=== PATIENT | male | born 2000 | race Caucasian/White ===

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

== ENCOUNTER → 2020-02-07 | Outpatient (CLI) | payer OTHER ==
--- NOTE | 2020-02-07 10:35 | US ---
EXAMINATION TYPE: US abdomen complete DATE OF EXAM: 02/07/2020 COMPARISON: NONE CLINICAL HISTORY: 19-year-old male E80.7 Disorder of bilirubin metabolism. TECHNIQUE: Multiple sonographic images of the abdomen are obtained. FINDINGS: EXAM MEASUREMENTS: Liver Length: 14.5 cm Gallbladder Wall: 0.2 cm CBD: 0.4 cm Spleen: 8.7 cm Right Kidney: 10.0 x 5.0 x 3.6 cm Left Kidney: 10.5 x 4.8 x 3.5 cm Pancreas: No gross abnormality. Liver: Homogeneous appearance. No focal lesion. However, the periportal fat is slightly echogenic. Gallbladder: No stones seen Evidence for sonographic Eckert's sign: No CBD: wnl Spleen: wnl Kidneys: No hydronephrosis. Upper IVC: wnl Abd Aorta: wnl IMPRESSION: 1. Slightly echogenic appearance to the periportal fat may be technical. Correlate with LFTs to exclu de hepatitis. 2. No gallstones or biliary ductal dilatation.
== END | disposition home or self-care (01) ==
LOC: RADUSWWP 07:04
PROVIDERS: ATTEND Family Medicine
DX: E80.7 Disorder of bilirubin metabolism, unspecified (principal)
CPT/HCPCS: 76700

== ENCOUNTER 2020-06-19 05:12 | Emergency (ER) | payer OTHER ==
[2020-06-19 05:20] VITALS: BP 119/77; TEMP 97.8
[2020-06-19] MEDS ORDERED: MAG HYDROX/AL HYDROX/SIMETH 30 ML, HYOSCYAMINE ELIXIR 10 ML, LIDOCAINE VISCOUS 2% 10 ML PO STA ×3 (05:37)
--- NOTE | 2020-06-19 05:44 | ED ---
Chest Pain HPI - General Chief Complaint: Chest Pain Stated Complaint: Chest pain Time Seen by Provider: 06/19/20 05:24 Source: patient, family Mode of arrival: ambulatory Limitations: no limitations - History of Present Illness MD Complaint: chest pain Onset/Timin -: days(s) Onset: during rest Pain Location: left chest Pain Radiation: none Severity: mild Quality: aching Consistency: constant Improves With: nothing Worsens With: nothing Treatments Prior to Arrival: none - Related Data Home Medications Medication Instructions Recorded Confirmed No Known Home Medications 09/11/16 09/11/16 Allergies Allergy/AdvReac Type Severity Reaction Status Date / Time pseudoephedrine Allergy Unknown Verified 06/19/20 05:20 Review of Systems ROS Statement: Those systems with pertinent positive or pertinent negative responses have been documented in the HPI. ROS Other: All systems not noted in ROS Statement are negative. Constitutional: Denies: fever, chills Respiratory: Denies: cough, dyspnea, wheezes Cardiovascular: Reports: chest pain. Denies: palpitations, dyspnea on exertion, orthopnea, edema, syncope Gastrointestinal: Denies: abdominal pain, nausea, vomiting, diarrhea, constipation Genitourinary: Denies: dysuria, hematuria Musculoskeletal: Denies: back pain Skin: Denies: rash Neurological: Denies: headache, weakness, numbness EKG Findings - EKG Results: EKG: interpreted by JOSH, sinus rhythm, normal axis, normal QRS, normal ST/T, no acute changes EKG shows: bradycardia (Rate 57 bpm) Past Medical History Past Medical History: No Reported History History of Any Multi-Drug Resistant Organisms: None Reported Past Surgical History: No Surgical Hx Reported Past Psychological History: No Psychological Hx Reported Smoking Status: Current some day smoker, Vaper Past Alcohol Use History: None Reported Past Drug Use History: None Reported General Exam Limitations: no limitations General appearance: alert, in no apparent distress Head exam: Present: atraumatic, normocephalic Eye exam: Present: normal appearance. Absent: scleral icterus, conjunctival injection ENT exam: Present: normal oropharynx Neck exam: Present: normal inspection Respiratory exam: Present: normal lung sounds bilaterally, chest wall tenderness. Absent: respiratory distress, wheezes, rales, rhonchi, stridor Cardiovascular Exam: Present: regular rate, normal rhythm, normal heart sounds. Absent: systolic murmur, diastolic murmur, rubs, gallop GI/Abdominal exam: Present: soft. Absent: distended, tenderness, guarding, rebound, rigid, mass Extremities exam: Present: normal inspection, normal capillary refill. Absent: pedal edema, calf tenderness Back exam: Present: normal inspection. Absent: CVA tenderness (R), CVA tenderness (L) Neurological exam: Present: alert Skin exam: Present: warm, dry, intact, normal color. Absent: rash Course Vital Signs 06/19/20 06/19/20 05:14 06:30 Temperature 97.8 F Pulse Rate 59 L 77 Respiratory 26 H 14 Rate Blood Pressure 119/77 O2 Sat by Pulse 99 97 Oximetry Chest Pain MDM - MDM Patient is 20-year-old man with atypical chest pain. Workup here unremarkable. Patient to try a course of nonsteroidal and follow-up. Discussed appropriate follow-up and also return parameters. Disposition Clinical Impression: Atypical chest pain Disposition: HOME SELF-CARE Condition: Good Instructions (If sedation given, give patient instructions): Chest Pain (ED) Is patient prescribed a controlled substance at d/c from ED?: No Referrals: Leslie Barajas MD [Primary Care Provider] - 1-2 days
--- NOTE | 2020-06-19 05:56 | XR ---
EXAM: XR Chest, 2 Views CLINICAL HISTORY: ITS.REASON XR Reason: chest pain TECHNIQUE: Frontal and lateral views of the chest. COMPARISON: No relevant prior studies available. FINDINGS: Lungs: Unremarkable. No consolidation. Pleural space: Unremarkable. No pneumothorax. Heart: Unremarkable. No cardiomegaly. Mediastinum: Unremarkable. Bones/joints: Unremarkable. IMPRESSION: Normal chest x-rays.
[2020-06-19 06:32] VITALS: PULSE 77; RESP 14
== END 2020-06-19 06:30 | disposition home or self-care (01) ==
LOC: EC 05:12
DX: R07.89 Other chest pain (principal); F17.290 Nicotine dependence, other tobacco product, uncomplicated; Z88.8 Allergy status to other drugs, medicaments and biological substances
CPT/HCPCS: 71046; 93005; 99285

== ENCOUNTER 2020-12-12 11:51 | Emergency (ER) | payer OTHER ==
[2020-12-12 11:55] VITALS: BP 110/60; PULSE 72; RESP 16; TEMP 98.1
[2020-12-12] MEDS ORDERED: KETOROLAC 15 MG/ML 1 ML VIAL IM STA (12:30)
[2020-12-12] MEDS ORDERED: ACETAMINOPHEN TAB 500 MG TAB PO STA (12:30)
[2020-12-12 12:54] LABS: Appearance,Urine Clear (Clear); Bilirubin,Urine Negative (Negative); Blood,Urine Negative (Negative); Color,Urine Colorless; Glucose,Urine (UA) Negative (Negative); Ketones,Urine Negative (Negative); Leukocyte Esterase,Urine Negative (Negative); Nitrite,Urine Negative (Negative); PH, Urine 7.5 (5.0-8.0); Protein,Urine Negative (Negative); Specific Gravity,Urine 1.005 (1.001-1.035); Urobilinogen,Urine <2.0 mg/dL (<2.0)
--- NOTE | 2020-12-12 12:56 | ED ---
Back Pain HPI - General Chief Complaint: Back Pain/Injury Stated Complaint: Back injury Time Seen by Provider: 12/12/20 12:15 Source: patient Limitations: no limitations - History of Present Illness Initial Comments: 20-year-old male patient presents to the emergency department today for evaluation of right flank pain. Patient states that the pain started about a week ago when lifting 95 pound weights at the gym. States that after some rest the pain did resolve. States he was again lifting today and the pain returned. Patient states is a sharp stabbing pain to the right flank region. States it hurts worse with movement and deep breathing. Denies any hematuria, dysuria, urinary frequency, urinary urgency. Denies nausea or vomiting. Denies any fever or chills. Denies any pain radiation down the legs. Denies saddle anesthesia or loss of bowel or bladder control. Denies any numbness or tingling to the lower extremities. Denies history of back problems. - Related Data Previous Rx's Medication Instructions Recorded Cyclobenzaprine [Flexeril] 10 mg PO TID #15 tab 12/12/20 Ibuprofen [Motrin] 600 mg PO Q8HR PRN #30 tab 12/12/20 Allergies Allergy/AdvReac Type Severity Reaction Status Date / Time pseudoephedrine Allergy Unknown Verified 12/12/20 11:54 Review of Systems ROS Statement: Those systems with pertinent positive or pertinent negative responses have been documented in the HPI. ROS Other: All systems not noted in ROS Statement are negative. Past Medical History Past Medical History: No Reported History History of Any Multi-Drug Resistant Organisms: None Reported Past Surgical History: No Surgical Hx Reported Past Psychological History: No Psychological Hx Reported Smoking Status: Current some day smoker, Vaper Past Alcohol Use History: None Reported Past Drug Use History: None Reported General Exam Limitations: no limitations General appearance: alert, in no apparent distress, other (this is a well- developed, well-nourished adult male patient in no acute distress. Vital signs upon presentation are temperature and he 8.1F, pulse 72, respirations 16, blood pressure 110/60, pulse ox 100% on room air.) ENT exam: Present: normal exam, normal oropharynx, mucous membranes moist Respiratory exam: Present: normal lung sounds bilaterally. Absent: respiratory distress, wheezes, rales, rhonchi, stridor Cardiovascular Exam: Present: regular rate, normal rhythm, normal heart sounds. Absent: systolic murmur, diastolic murmur, rubs, gallop, clicks GI/Abdominal exam: Present: soft, normal bowel sounds. Absent: distended, tenderness, guarding, rebound, rigid Back exam: Present: normal inspection, CVA tenderness (R). Absent: CVA tenderness (L), vertebral tenderness Neurological exam: Present: alert, oriented X3, CN II-XII intact Psychiatric exam: Present: normal affect, normal mood Skin exam: Present: warm, dry, intact, normal color. Absent: rash Course Vital Signs 12/12/20 11:52 Temperature 98.1 F Pulse Rate 72 Respiratory 16 Rate Blood Pressure 110/60 O2 Sat by Pulse 100 Oximetry Medical Decision Making - Medical Decision Making 20-year-old male patient presents the emergency department today for evaluation of right flank pain that started after lifting heavy weights at the gym. Physical examination did reveal right CVA tenderness. He is afebrile normal vital signs. Abdomen is soft and nontender. Urinalysis was obtained and was negative for any signs of blood or infection. We will treat for muscle strain at this time. We discussed possibility of kidney stone though and he is educated regarding signs and symptoms. Return parameters were discussed in detail. He is instructed to follow-up with his primary care physician for recheck in 1-2 days. He verbalizes understanding and agrees with this plan. Case discussed with my attending Dr. Mauricio. - Lab Data Lab Results 12/12/20 Range/Units 12:37 Urine Color Colorless Urine Appearance Clear (Clear) Urine pH 7.5 (5.0-8.0) Ur Specific [place] 1.005 (1.001-1.035) Urine Protein Negative (Negative) Urine Glucose (UA) Negative (Negative) Urine Ketones Negative (Negative) Urine Blood Negative (Negative) Urine Nitrite Negative (Negative) Urine Bilirubin Negative (Negative) Urine Urobilinogen <2.0 (<2.0) mg/dL Ur Leukocyte Esterase Negative (Negative) Disposition Clinical Impression: Flank pain Disposition: HOME SELF-CARE Condition: Good Instructions (If sedation given, give patient instructions): Flank Pain (ED), Back Pain (ED) Additional Instructions: Increase fluids. Take medications as directed. Take a rest from lifting heavy weight for at least one week. Apply warm moist heat to the area. Return to the emergency department for evaluation if you develop fever, vomiting, or blood in the urine. Return for any other new, worsening, or concerning symptoms. Prescriptions: Cyclobenzaprine [Flexeril] 10 mg PO TID #15 tab Ibuprofen [Motrin] 600 mg PO Q8HR PRN #30 tab PRN Reason: Pain Is patient prescribed a controlled substance at d/c from ED?: No Referrals: Leslie Barajas MD [Primary Care Provider] - 1-2 days Time of Disposition: 13:07
== END 2020-12-12 13:31 | disposition home or self-care (01) ==
LOC: EC 11:51
DX: R10.9 Unspecified abdominal pain (principal); F17.290 Nicotine dependence, other tobacco product, uncomplicated
CPT/HCPCS: 81003; 99284; 96372; J1885

== ENCOUNTER 2021-09-20 06:38 | Emergency (ER) | payer OTHER ==
[2021-09-20 06:48] VITALS: BP 131/88; PULSE 79; RESP 19; TEMP 98
--- NOTE | 2021-09-20 06:55 | ED ---
General Adult HPI - General Chief complaint: Skin/Abscess/Foreign Body Stated complaint: Left Pinky Finger Injury Time Seen by Provider: 09/20/21 06:48 Source: patient, RN notes reviewed Mode of arrival: ambulatory Limitations: no limitations - History of Present Illness Initial comments: This a 29-year-old male presents emergency Department with chief complaint of left hand fifth digit injury. Patient states he was trying to loosen something with a ratchet states it slipped causing him to smash his fifth digit of the left hand. He is [id number]. No paresthesias. Patient states is bruising, swelling today. Patient states is very uncomfortable. - Related Data Previous Rx's Medication Instructions Recorded Cyclobenzaprine [Flexeril] 10 mg PO TID #15 tab 12/12/20 Ibuprofen [Motrin] 600 mg PO Q8HR PRN #30 tab 12/12/20 Ibuprofen [Motrin] 600 mg PO Q8HR PRN #20 tab 09/20/21 Allergies Allergy/AdvReac Type Severity Reaction Status Date / Time Iodine and Iodide Containing Allergy Rash/Hives Verified 09/20/21 06:49 Produc pseudoephedrine Allergy Unknown Verified 09/20/21 06:48 Review of Systems ROS Statement: Those systems with pertinent positive or pertinent negative responses have been documented in the HPI. ROS Other: All systems not noted in ROS Statement are negative. Past Medical History Past Medical History: No Reported History History of Any Multi-Drug Resistant Organisms: None Reported Past Surgical History: No Surgical Hx Reported Past Psychological History: No Psychological Hx Reported Smoking Status: Current some day smoker, Vaper Past Alcohol Use History: None Reported Past Drug Use History: None Reported General Exam Limitations: no limitations General appearance: alert, in no apparent distress Head exam: Present: atraumatic, normocephalic, normal inspection Eye exam: Present: normal appearance, PERRL, EOMI. Absent: scleral icterus, conjunctival injection, periorbital swelling Respiratory exam: Present: normal lung sounds bilaterally. Absent: respiratory distress, wheezes, rales, rhonchi, stridor Cardiovascular Exam: Present: regular rate, normal rhythm, normal heart sounds. Absent: systolic murmur, diastolic murmur, rubs, gallop, clicks Extremities exam: Present: other (Left hand fifth digit there is ecchymotic area from DIP or PIP there is no laceration patient has pain with palpation and range of motion no hand tenderness) Course Vital Signs 09/20/21 06:44 Temperature 98 F Pulse Rate 79 Respiratory 19 Rate Blood Pressure 131/88 O2 Sat by Pulse 100 Oximetry Medical Decision Making - Medical Decision Making X-ray does not reveal any acute osseous abnormality. Patient has an incisional be discharged in stable condition return parameters discussed. Disposition Clinical Impression: Contusion of left little finger Disposition: HOME SELF-CARE Condition: Stable Instructions (If sedation given, give patient instructions): Contusion in Adults (ED) Additional Instructions: Please return to the Emergency Department if symptoms worsen or any other concerns. Prescriptions: Ibuprofen [Motrin] 600 mg PO Q8HR PRN #20 tab PRN Reason: Pain Is patient prescribed a controlled substance at d/c from ED?: No Referrals: Alondra Lucas MD [STAFF PHYSICIAN] - 1-2 days Time of Disposition: 07:02
--- NOTE | 2021-09-20 07:11 | XR ---
EXAMINATION TYPE: XR finger LT DATE OF EXAM: 09/20/2021 COMPARISON: NONE HISTORY: Trauma. Pain TECHNIQUE: 3 view FINDINGS: There is soft tissue swelling at the PIP of the little finger. I see no fracture nor disloc ation. Joint spaces are normal. IMPRESSION: Soft tissue swelling. No fracture.
== END 2021-09-20 07:19 | disposition home or self-care (01) ==
LOC: EC 06:38
DX: S60.052A Contusion of left little finger without damage to nail, initial encounter (principal); F17.200 Nicotine dependence, unspecified, uncomplicated; Z88.8 Allergy status to other drugs, medicaments and biological substances; W22.8XXA Striking against or struck by other objects, initial encounter; Y93.89 Activity, other specified
CPT/HCPCS: 99283

== ENCOUNTER → 2022-05-25 | Outpatient (CLI) | payer OTHER ==
--- NOTE | 2022-05-26 08:21 | US ---
EXAMINATION TYPE: US scrotum with doppler. DATE OF EXAM: 05/25/2022 COMPARISON: NONE CLINICAL HISTORY: 21-year-old male [id number] testicular pain. Pain and palpable left scrotum TECHNIQUE: Grayscale and color Doppler Duplex imaging performed of the scrotum. FINDINGS: EXAM MEASUREMENTS: TESTICLES: Right Testicle: 4.8 x 2.2 x 3.2 cm Left Testicle: 4.6 x 2.2 x 2.8 cm EPIDIDYMIS HEAD: Right Epididymis: 1.2 cm Left Epididymis: 1.3 cm Doppler performed to assess for testicular vascularity; good bilateral color flow and waveforms are s een. There is no evidence of testicular torsion. Presence of hydroceles: no Presence of varicoceles: yes, adjacent to left testicle IMPRESSION: 1. No sonographic evidence for testicular torsion or testicular mass. 2. Left-sided varicocele.
== END | disposition home or self-care (01) ==
LOC: RADUSWWP 12:50
PROVIDERS: ATTEND Family Medicine
DX: I86.1 Scrotal varices (principal); N50.812 Left testicular pain
CPT/HCPCS: 76870; 93975